=== PATIENT | male | born 2000 | race Caucasian/White ===

== ENCOUNTER 2024-06-14 10:42 | Outpatient (CLI) | payer OTHER | END 2024-06-14 23:59 | disposition home or self-care (01) | LOC: MRI02 10:42 | PROVIDERS: ATTEND Family Medicine Sports Medicine | DX: S83.203A Other tear of unspecified meniscus, current injury, right knee, initial encounter (principal); M25.561 Pain in right knee; M76.41 Tibial collateral bursitis [Pellegrini-Stieda], right leg; X58.XXXA Exposure to other specified factors, initial encounter; Y93.89 Activity, other specified; Y92.89 Other specified places as the place of occurrence of the external cause; Y99.8 Other external cause status | CPT/HCPCS: 73721 ==